=== PATIENT | male | born 1990 | race Caucasian/White ===

== ENCOUNTER 2021-08-16 01:53 | Emergency (ER) | payer BC ==
[2021-08-16] MEDS: Morphine 4 MG/ML VIAL IVPUSH ONE ×2 (02:27→05:16)
[2021-08-16] MEDS: Ondansetron 4 MG/2 ML SDV IVPUSH ONE (02:27)
[2021-08-16] MEDS: Sodium Chloride 0.9% 1,000 ML IV ONE (02:29)
[2021-08-16 02:50] LABS: BLOOD UREA NITROGEN,BUN 19 mg/dL (7.0-18.0); CARBON DIOXIDE,CO2 27.6 mmol/L (21.0-32.0); CHLORIDE,CL 104 mmol/L (98-107); GLUCOSE RANDOM 113 mg/dL (74-106); LIPASE 69 U/L (73-393); POTASSIUM,K 3.9 mmol/L (3.5-5.1); SODIUM,NA 142 mmol/L (136-148)
[2021-08-16] MEDS: Iopamidol 755 MG/ML 500 ML Multipack Bottle IVPUSH STA (03:21)
== END 2021-08-16 09:42 ==
LOC: MW.ED 01:53 → EDSEX 01:53 → MW.ED 09:42
DX: K56.609 Unspecified intestinal obstruction, unspecified as to partial versus complete obstruction (principal); Z91.040 Latex allergy status; Z88.1 Allergy status to other antibiotic agents; Z20.822 Contact with and (suspected) exposure to COVID-19
CPT/HCPCS: 36415; 71045; 74177; 80053; 83605; 83690; 83735; 85025; 87635; 96374; 96375; 96376; 99284; J2270; J2405; J7030; Q9967; U0002